=== PATIENT | male | born 1980 | race Caucasian/White ===

== ENCOUNTER 2025-01-22 19:23 | Emergency (ER) | payer SELFPAY ==
[2025-01-22 19:33] VITALS: BP 140/71; PULSE 75; RESP 24; TEMP 36.7; O2SAT 98; BMI 29.8
[2025-01-22 19:38] VITALS: BP 140/71; PULSE 75; RESP 24; TEMP 36.7; O2SAT 98
[2025-01-22] MEDS: LIDOCAINE 5% TRANSDERMAL PATCH 1 EACH TD (20:14)
[2025-01-22] MEDS: KETOROLAC 60MG/2ML VIAL 60 MG IM (20:14)
--- OUTSIDE RECORDS SUMMARY | 2025-01-22 20:25 | XMS_ITS | Clinical Summary ---
Author Organization [facility] Address [address] [place] [id number] Care Team Providers Care Real Estate Site Analyst Name Role Phone Pcp, No Primary Care Provider [phone] Source Comments This information has been disclosed to you from confidential records protectedfrom disclosure by state law. You shall make no further disclosure of thisinformation without the specific, written, and informed release of theindividual to whom it pertains, or as otherwise permitted by law. A generalauthorization for the release of medical or other information is not sufficientfor the purposes of therelease of HIV test results or diagnoses. [id number] Allergies No known active allergies Medications No known medications Social History Tobacco Use Types Packs/Day Years Used Date Smoking Tobacco: Every Day Smokeless Tobacco: Current Sex and Gender Information Value Date Recorded Sex Assigned at Not on file Legal Sex Male 11:49 AM EDT Gender Identity Not on file Sexual Orientation Not on file Last Filed Vital Signs Vital Sign Reading Time Taken Comments Blood Pressure 140/88 08/14/2020 11:22 AM EDT Pulse 91 08/14/2020 11:22 AM EDT Temperature 36.5 C (97.7 F) 08/14/2020 11:22 AM EDT Respiratory Rate 15 08/14/2020 11:22 AM EDT Oxygen Saturation 100% 08/14/2020 11:22 AM EDT Inhaled Oxygen Concentration 100% 08/14/2020 1 1:22 AM EDT Weight 107 kg (236 lb) 08/14/2020 11:22 AM EDT Height 182.9 cm (6') 08/14/2020 11:22 AM EDT Body Mass Index 32.01 08/14/2020 11:22 AM EDT Plan of Treatment Not on file Insurance NETWORK Care Teams Real Estate Site Analyst Relationship Specialty Start Date End Date Pcp, No No Address PCP - General 08/05/20
--- OUTSIDE RECORDS SUMMARY | 2025-01-22 20:25 | XMS_ITS | Clinical Summary ---
Author Organization [facility] Address [address] [place] [address] Phone Care Team Providers Care Sap Technical Architect Name Role Phone Mayi Bautista APRN Primary Care Provider Allergies No known active allergies Medications Insulin [place], Disposable, (MELODY PEN NEEDLE) 32 gauge x 5/32 Misc NeedleIndications: Type 2 diabetes mellitus with hyperlipidemia (HCC) Subcutaneous (Inject under the skin) 1 Each once a week. 1 box 2 07/05/19 21 Active levocetirizine (XYZAL) 5 mg Oral Tablet TAKE 1 TABLET BY MOUTH EVERY DAY IN THE EVENING 30 Tablet 02/20/20 21 Active Additional Information Patient not taking.Reported on 09/02/2023 Blood-Glucose Meter Misc MiscIndications:Ty pe 2 diabetes mellitus with hyperlipidemia (HCC) Check bs once daily. 1 Each 09/02/19 24 Active Blood Sugar Diagnostic Misc StripIndications:T ype 2 diabetes mellitus with hyperlipidemia (HCC) Use to test blood sugar once daily 100 Each 3 09/02/19 24 Active Lancets Misc MiscIndications:Ty pe 2 diabetes mellitus with hyperlipidemia (HCC) Use to test once daily 100 Each 2 09/02/19 24 Active metFORMIN (GLUCOPHAGE XR) 500 mg Oral ER 24 hr tabletIndications: Type 2 diabetes mellitus with hyperlipidemia (HCC) Take 1 Tablet by mouth 2 times daily (with meals). 180 Tablet 3 09/02/19 24 Active dapagliflozin propanediol (FARXIGA) 10 mg Oral TabletIndications: Type 2 diabetes mellitus with hyperlipidemia (HCC) Take 1 Tablet by mouth daily. 90 Tablet 3 09/02/19 24 Active simvastatin (ZOCOR) 10 mg Oral TabletIndications: Type 2 diabetes mellitus with hyperlipidemia (HCC),High cholesterol,High triglycerides Take 1 Tablet by mouth every evening. 90 Tablet 1 09/02/19 24 Active omeprazole (PRILOSEC) 40 mg Oral Capsule, Delayed Release(E.C.)Indic ations:Gastroesoph ageal reflux disease, unspecified whether esophagitis present Take 1 Capsule by mouth daily. 90 Capsule 3 09/02/19 24 Active umeclidinium-vilan teroL (ANORO ELLIPTA) 62.5-25 mcg/actuation Inhl Disk with DeviceIndications: COPD, moderate (HCC) Inhale 1 Puff into the lungs daily. 60 Each 5 09/02/19 24 Active lisinopriL (PRINIVIL;ZESTRIL) 10 mg Oral TabletIndications: Type 2 diabetes mellitus with hyperlipidemia (HCC) Take 1 Tablet by mouth daily. 90 Tablet 3 02/07/20 24 Active nicotine (NICODERM CQ) 21 mg/24 hr TD Patch 24 hrIndications:Ciga rette nicotine dependence with withdrawal Place 1 Patch onto the skin every 24 hours. 30 Patch 1 02/07/20 24 Active albuterol (PROVENTIL HFA;VENTOLIN HFA) 90 mcg/actuation Inhl HFA Aerosol InhalerIndications :Acute bronchitis, unspecified organism INHALE 2 PUFFS BY MOUTH EVERY 4 HOURS NEEDED FOR WHEEZE 6.7 Each 2 02/07/20 24 Active lidocaine (LIDODERM) 5 % Top Adhesive Patch, Medicated Place 1 Patch onto the skin daily. Apply for 12 hours, remove for 12 hours, then apply new patch 30 Patch 04/10/19 25 Active Active Problems Problem Noted Date Diagnosed Date COPD, moderate 09/02/2023 Gastroesophageal reflux disease 09/02/2023 COVID-19 12/11/2020 Type 2 diabetes mellitus with hyperlipidemia 10/2020 Overview (09/03/2021): Lab Results Component Value Date HGBA1C 9.6 (H) 05/20/2021 HGBA1C 10.1 (H) 06/28/2020 HGBA1C 6.3 11/09/2013 On metformin and ozempci on ACEi/statin for risk reduction. Micro/IRIS done Assessment & Plan (09/03/2021 4:07 PM EDT): stopping ozempic d/t GI symptoms. will get A1C to determine other options for diabetes control High cholesterol 07/04/2020 Overview (05/20/2021): On statin High triglycerides 07/04/2020 Low vitamin D level 07/04/2020 Microalbuminuria due to type 2 diabetes mellitus 07/04/2020 Overview (05/20/2021): Diabetes management. On ACEi. Obesity, Class I, BMI 30-34.9 06/28/2020 Overview (06/28/2020): Diet/exercise. Tobacco abuse 06/28/2020 Overview (06/28/2020): 1.5ppd Encouraged cessation Mood disorder 04/21/2019 Overview (04/21/2019): Labile mood. Self managed. Resolved Problems Problem Noted Date Diagnosed Date Resolved Date Elevated TSH 04/21/2019 07/04/2020 Overview (04/21/2019): Elevated in past. No workup. Not on meds. Recheck and follow-up accordingly. Tendonitis 04/21/2019 06/28/2020 Overview (04/21/2019): High arch. Needs shoe inserts. Ankle stretching. NSAIDS Marijuana use 04/21/2019 06/28/2020 Overview (04/21/2019): Encouraged cessation. Hypothyroidism 11/21/2013 04/21/2019 Immunizations Immunization Administration Dates Next Due Td (Adult), Absorbed 12/08/2011 Tdap 08/05/2020,01/10/2010 Surgical History Surgery Date Site/Laterality Comments VASECTOMY ABDOMEN SURGERY Family History Relation Name Status Comments Father Mother Alive Social History Tobacco Use Types Packs/Day Years Used Date Smoking Tobacco: Some Days Cigarettes 1.5 22.8 Started: 03/29/2002 Smokeless Tobacco: Former Snuff Tobacco Cessation:Ready to Q uit: Not Asked; Counseling Given: Not Answered Alcohol Use Standard Drinks/Week Comments Yes 0 (1 standard drink = 0.6 oz pur e alcohol) beer Overall Financial Resource Strain (CARDIA) Answe r Date Recorded How hard is it for you to pa y for the very basics like food, housing, medical care, and heating? Not very hard 07/15/2020 PHQ-2 Answer Date Recorded PHQ-2 Total Score 0 06/28/2020 [facility]ational Stress Questionnaire Answer Date Recorded Do you feel stress - tense, restless, nervous, or anxious, or unable to sleep at night because your mind is troubled all the time - these days? Not at all 07/15/2020 Exercise Vital Sign Answer Date Recorde d On average, how many days pe r week do you engage in moderate to strenuous exercise (like a brisk walk)? 7 days 07/15/2020 On average, how many minutes do you engage in exercise at this level? 150+ min 07/15/2020 Hunger Vital Sign Answer Date Recorded Within the past 12 months, y ou worried that your food would run out before you got the money to buy more. Never true 07/16/19 21 Within the past 12 months, t he food you bought just didn't last and you didn't have money to get more. Never true 07/15/2020 PRAPARE - Transportation Answer Date Re corded In the past 12 months, has l ack of transportation kept you from medical appointments or from getting medications? No 06/27 In the past 12 months, has l ack of transportation kept you from meetings, work, or from getting things needed for daily living? No 07/15/2020 Sexually Active Control Partners Comments Yes Surgical Female Sex and Gender Information Value Date Recorded Sex Assigned at Not on file Legal Sex Male 6:35 AM EDT Gender Identity Not on file Sexual Orientation Not on file Last Filed Vital Signs Vital Sign Reading Time Taken Comments Blood Pressure 163/102 04/10/2024 11:00 AM EST Pulse 85 04/10/2024 11:00 AM EST Temperature 36.8 C (98.3 F) 04/10/2024 11:00 AM EST Respiratory Rate 16 04/10/2024 11:0 0 AM EST Oxygen Saturation 100% 04/10/2024 11: 00 AM EST Inhaled Oxygen Concentration - - Weight 95.6 kg (210 lb 12.8 oz) 09/02/2023 2:59 PM EDT Height 182.9 cm (6') 09/02/2023 2:59 PM EDT Body Mass Index 28.59 09/02/2023 2:59 PM EDT Plan of Treatment Health Maintenance Due Date Last Done Comments Hepatitis B Vaccine (1 of 3 - 19+ 3-dose series) 2001 Pneumococcal Vaccine 0-49 (1 of 2 - PCV) 2001 Hemoglobin A1c 03/03/2024 09/02/2023, 0 08/2023, 09/03/2021, Additional history exists Annual Wellness Exam 09/01/2024 09/02/2023 Kidney Health: eGFR 09/01/2024 09/02/2023, 09/03/2021, 05/20/2021, Additional history exists Kidney Health: uACR 09/01/2024 09/02/2023 Lipids 09/01/2024 09/02/2023, 0 08/2023, 05/20/2021, Additional history exists COVID-19 Vaccine ( season) 2024 Influenza Vaccine (#1) 2024 12/15/2016 (Declin ed) Diabetic Eye Exam 09/01/2025 09/02/2023 DTaP/TDaP/Td (4 - Td or Tdap) 08/05/2030 08/05/2020, 12/08/2011, 01/10/2010 Meningococcal B Vaccine Aged Out No l onger eligible based on patient's age to complete this topic Goals Goal Patient Goal Type Associated Problems Recent Progress Patient-Stated? Author Blood Pressure < 140/90 Blood Pressure 163/102(04/10 11:00 AM EST) No Mayi Bautista APRN Maintain a healthy diet, exercise regularly and maintain an ideal body weight General On track( 021 11:41 AM EDT) No Dilia Matute MA BMI (Calculated) < 30 General 28.6(09/02/19 24 2:59 PM EDT) No Mayi Bautista APRN Will test blood sugars at least 3x weekly and record General On track( 022 10:44 AM EST) No Mary Jo Sinha, RN Note: log book given, advised pt to test throughout week alternating fasting, 1-2 hr post meal & HS Stay Tobacco Free Lifestyle No Dilia Matute MA HEMOGLOBIN A1C < 7.0 Result Component 7.3( 3:18 PM EDT) No Mayi Bautista APRN Procedures Procedure Name Priority Date/Time Associated Diagnosis Comments ALBUMIN/CREATININE RATIO, RANDOM URINE Routine 09/02/2023 4:39 PM EDT Type 2 diabetes mellitus with hyperlipidemia (HCC) COMPREHENSIVE METABOLIC PANEL Routine 09/02/2023 3:18 PM EDT Annual physical exam Obesity, Class I, BMI 30-34.9 Type 2 diabetes mellitus with hyperlipidemia (HCC) High cholesterol LIPID PANEL REFLEX Routine 09/02/2023 3: 18 PM EDT Annual physical exam Obesity, Class I, BMI 30-34.9 Type 2 diabetes mellitus with hyperlipidemia (HCC) High cholesterol HEMOGLOBIN A1C Routine 09/02/2023 3:18 PM EDT Annual physical exam Obesity, Class I, BMI 30-34.9 Type 2 diabetes mellitus with hyperlipidemia (HCC) from Last 3 Months or Most Recently Relevant to Health Maintenance Results * MICROALBUMIN/CREATININE RATIO URINE (09/02/2023 4:39 PM EDT) Urine Albumin <12.0 mg/L 09/03/2023 4:44 PM EDT [facility] Urine Creatinine 112.0 mg/dL 09/03/19 4:44 PM EDT [facility] Ur Albumin/Creat Ratio 09/03/2023 4:44 PM EDT [facility], [facility] Comment: Because the albumin level is below the level of detection in this urine specimen, the laboratory is unable to calculate a reliable albumin/creatinine ratio. Microalbuminuria is unlikely if the urine albumin concentration is less than 20- 30 mg/L in a random specimen. Urine URINE SPECIMEN COLLECTION / Unknown 09/02/2023 4:39 PM EDT 09/02/2023 4:39 PM EDT Domenico Vences MD URINE ORDERABLES Final Result Performing Organization Address [facility] Co de Phone Number [facility], [facility] [address] [facility] , [place] [address] * (ABNORMAL) LIPID PANEL REFLEX (09/02/2023 3:18 PM EDT) Pathologist [facility] [place] Cholesterol 136 <200 mg/dL 09/02/2023 7:59 PM EDT [facility], [facility] Comment: < 200 Desirable 200 - 239 Borderline High >= 240 High Triglyceride 87 <150 mg/dL 09/02/2023 7:59 PM EDT [facility] Comment: < 150 Normal 150 - 199 Borderline High 200 - 499 High >= 500 Very High HDL 35(L) >=40 mg/dL 09/02/2023 7:59 PM EDT [facility], [facility] Comment: > 60 Optimal 40 - 60 Acceptable < 40 Low LDL Calculated 84 <100 mg/dL 09/02/2023 7:59 PM EDT [facility], [facility] Non-HDL-C Calculated 101 <=129 mg/dL 09/02/2023 7:59 PM EDT [facility], [facility] Comment: <130 Desirable 130-159 Above Desirable 160-189 Borderline High 190-219 High >= 220 Very High Fasting Specimen? Yes None 024 7:59 PM EDT [facility] Blood VENOUS BLOOD / Unknown Venipuncture / Unknown 09/02/2023 3:18 PM EDT 09/02/2023 3:18 PM EDT Domenico Vences MD CHEMISTRY ORDERABLES Final Res ult Performing Organization Address City/[facility]/ZIP Co de Phone Number [facility], [facility] [address] [address] , [place] [address] [facility] [address] [place], [place] [id number] * (ABNORMAL) HEMOGLOBIN A1C (09/02/2023 3:18 PM EDT) Hgb A1C 7.3(H) 4.2 - 5.6 % 09/03/2023 8:12 PM EDT [facility] Comment:This is a corrected result. Previous result was 8.2 % on 09/02/2023 at 1951 EDT Est. Avg Glucose 163 mg/dL 09/03/2023 8:12 PM EDT [facility] Comment:This is a corrected result. Previous result was 189 mg/dL on 09/02/2023 at 1951 EDT Blood VENOUS BLOOD / Unknown Venipuncture / Unknown 09/02/2023 3:18 PM EDT 09/02/2023 3:18 PM EDT Narrative [facility] - 09/03/2023 8:12 PM EDT REFERENCE RANGE: Normal: 4.0-5.6% Pre-diabetes: 5.7-6.4% Provisional diagnosis of diabetes: >6.4% Hgb F>10% and anything which shortens red cell survival, such as hemolytic anemia, or unstable hemoglobin variants such as HbSS, HbSC, or HbCC, will lower the HbA1c value associated with a given level of glycemic control. us Domenico Vences MD CHEMISTRY ORDERABLES Edited Re sult - Final [facility], [facility] [address] [facility] , [place] [address] * (ABNORMAL) COMPREHENSIVE METABOLIC PANEL (09/02/2023 3:18 PM EDT) Sodium 140 136 - 145 mmol/L 09/02/2023 7:59 PM EDT [facility] Potassium 5.4(H) 3.5 - 5.0 mmol/L 09/02/2023 7:59 PM EDT [facility] Chloride 106 98 - 107 mmol/L 09/02/2023 7:59 PM EDT [facility] Total CO2 25 22 - 29 mmol/L 09/02/2023 7:59 PM EDT [facility] Anion Gap 9 7 - 16 mmol/L 09/02/2023 7:59 PM EDT [facility] Calcium 8.9 8.6 - 10.4 mg/dL 09/02/2023 7:59 PM EDT [facility] Glucose Lvl 123(H) 70 - 99 mg/dL 09/02/2023 7:59 PM EDT [facility] BUN 17 6 - 20 mg/dL 09/02/2023 7:59 PM EDT [facility] Creatinine 0.92 0.67 - 1.30 mg/dL 09/02/2023 7:59 PM EDT [facility] Albumin 4.7 3.5 - 5.2 gm/dL 09/02/2023 7:59 PM EDT [facility] Total Protein 7.1 6.4 - 8.3 gm/dL 09/02/2023 7:59 PM EDT [facility] Bili Total 0.3 0.2 - 1.4 mg/dL 09/02/2023 7:59 PM EDT [facility] ALT 22 <=41 U/L 09/02/2023 7:59 PM EDT [facility] AST 25 <=40 U/L 09/02/2023 7:59 PM EDT [facility] Alk Phos 71 40 - 129 U/L 09/02/2023 7:59 PM EDT [facility] eGFR (CKD-EPIcr 2020) 108 >=60 mL/min/1.7 3 m2 09/02/2023 7:59 PM EDT [facility] Comment:Estimated GFR was ca lculated using the CKD-EPIcr (2020) equation refit without race. The equation is recommended by the National Kidney Foundation - [place] [employer] of Nephrology Task Force. Blood VENOUS BLOOD / Unknown Venipuncture / Unknown 09/02/2023 3:18 PM EDT 09/02/2023 3:18 PM EDT us Domenico Vences MD CHEMISTRY ORDERABLES Final Res ult [facility] [address] [facility] [address] [place] [id number] [facility] [address] [place] [address] from Last 3 Months or Most Recently Relevant to Health Maintenance [facility] [place] [id number] Care Teams Sap Technical Architect Relationship Specialty Start Date End Date Mayi [place] [address] [place] [address] PCP - General Nurse Practitioner-Family 04/21/19
--- NOTE | 2025-01-22 20:26 | ED_ITS ---
Discharge Plan Disposition Patient Disposition: Home, Self-Care Prescriptions Prescriptions: New cyclobenzaprine 10 mg tablet 10 mg PO TID PRN (Reason: muscle spasm) 5 Days Qty: 15 0RF lidocaine 4 % adhesive patch,medicated 1 patch topical DAILY Qty: 5 0RF Rx Instructions: may leave on for up to 12 hrs prednisone 50 mg tablet 50 mg PO DAILY 5 Days Qty: 5 0RF Rx Instructions: Please begin 1 day after ED visit naproxen 500 mg tablet 500 mg PO BID PRN (Reason: pain) 7 Days Qty: 14 0RF Referrals Follow up/Referrals: Mayi Bautista APRN [Primary Care Provider, Medical] - See instructions Activity Restrictions/Add. Instructions Additional Instructions/Restrictions: No evidence of an emergent medical condition identified today. Please take your symptomatic medications for the paraspinal muscular spasms/lumbosacral strain as discussed. Return to the emergency room with any of the symptoms we discussed. Clinical Impressions Clinical Impression: Lumbar paraspinal muscle spasm Stand Alone Forms Stand Alone Forms: Work/School Release Instructions Patient Instructions: DI for Low Back Pain Print Language Print Language: Yakut Discharge ED Provider: Moy Duval General Adult HPI General Chief complaint: Back Pain/Injury Stated complaint: back pain, unable to walk Time Seen by Provider: 01/22/25 19:51 Mode of Arrival: Wheelchair Source of Information: Patient and Spouse Description of Symptoms (Recalled from ER Triage Doc. by RN): Pt presents with c/o his back locking up while using the bathroom around 1600. Pt states he does have a history of his back locking up. Pt states the lower back pain wraps around the front of his pelvic area, and he cannot lift his legs. History of Present Illness HPI narrative: Patient is a 44-year-old presenting today with back pain. States he was using the bathroom and stood up from having a bowel movement in his back and locked up. States that he is post to go to work tonight at 8:00 and just feels like he cannot make it there. Denies any lower extremity weakness denies any bowel or bladder incontinence urinary retention saddle anesthesia midline pain fevers history of injection drug use or cancer. Related Data Previous Rx's ?Medication ?Instructions ?Recorded cyclobenzaprine 10 mg tablet 10 mg PO TID PRN muscle s pasm 5 10/27/25 days #15 tabs lidocaine 4 % topical patch 1 patch topical DAILY #5 e a 01/22/25 naproxen 500 mg tablet 500 mg PO BID PRN pain 7 day s #14 01/22/25 tabs prednisone 50 mg tablet 50 mg PO DAILY 5 days #5 tab s 01/22/25 Allergies Allergy/AdvReac Type Severity Reaction Status Date / Time No Known Allergies Allergy Verified 01/22/25 20:06 [facility] Disclaimer: The information contained in this section may have been updated after the patient was seen, as this information can be updated by other users. Social History Smoking Status: Current every day smoker alcohol intake: never current occupational status: other Travel in the last 8 weeks?: None ROS Obtained: Yes All systems reviewed & no additional complaints except as documented Physical Exam General General appearance: alert and in no apparent distress Respiratory Respiratory exam: Present normal lung sounds bilaterally Cardiovascular Cardiovascular exam: Present regular rate Back Exam Back exam: Absent tenderness (No midline tenderness normal lower extremity motor and sensory exam) Back 1 view image: 2 1. Tenderness to palpation 2. Tenderness to palpation Neurological Exam Neurological exam: Present alert and oriented X3 Medical Decision Making Medical Records Screening: Per USPSTF and CDC recommendations, given the prevalence of disease in our region, it is our hospital?s policy to screen for HIV and viral Hepatitis for all patients aged 18 and over and those with ongoing risk factors. Daniel Inquiry Pt receiving controlled substance: No Vital Signs: 01/22/25 19:33 01/22/25 19:38 Temperature 98.0 F 98.0 F Temperature Source Temporal Artery Scan Temporal Artery Scan Pulse Rate 75 Pulse Rate [Right] 75 Respiratory Rate 24 24 Blood Pressure 140/71 Blood Pressure [Right Arm] 140/71 Blood Pressure Mean [Right Arm] 94 Blood Pressure Source Automatic Cuff Blood Pressure Source [Right Arm] Automatic Cuff Blood Pressure Position Sitting Blood Pressure Position [Right Arm] Sitting 02 Sat by Pulse Oximetry 98 98 Oxygen Delivery Method Room Air Room Air Orders (Tests/Meds): ED MEDICATIONS Discontinued Medications Generic Name Dose Route Start Last Admin Trade Name Freq PRN Reason Stop Dose Admin Ketorolac Tromethamine 60 mg 01/22/25 20:04 01/22/25 20:14 Ketorolac 60mg/2ml Vial IM 01/22/25 20:05 60 mg ONCE ONE Administration Lidocaine 1 each 01/22/25 20:04 01/22/25 20:14 Lidocaine 5% Transdermal Patch TD 01/22/25 20:05 1 each ONCE ONE Administration Prednisone 60 mg 01/22/25 20:04 01/22/25 20:14 Prednisone 20mg Tab PO 01/22/25 20:05 60 mg ONCE ONE Administration Medical Decision Narrative: 44-year-old with above history and physical no red flags from history of physical standpoint to suggest that he needs advanced imaging such as MRI specifically no concern for cauda equina or any central nervous system compression. His tenderness is paraspinal in the lumbosacral and paraspinal lumbar region. This is consistent with either muscular spasm or strain. Treatment is supportive. Medications given in the emergency department prescription sent to his pharmacy work excuse given to the patient he was discharged in stable condition. Critical Care Critical Care Time Critical Care Time: No
[2025-01-22 20:37] VITALS: BP 132/75; PULSE 65; RESP 18; TEMP 36.8; O2SAT 100
== END 2025-01-22 20:37 | disposition home or self-care (01) ==
PROVIDERS: Emergency Provider Student in an Organized Health Care Education/Training Program; PCP Nurse Practitioner
DX: M62.830 Muscle spasm of back (principal); M54.50 Low back pain, unspecified
CPT/HCPCS: 96372; 99283; J1885